=== PATIENT | female | born 1950 | race Caucasian/White ===

== ENCOUNTER 2016-12-01 08:13 | Emergency (ER) | payer OTHER, BC ==
[~2016-12-01] VITALS: Ht 157.5 cm; Wt 86.1 kg
[~2016-12-01 08:13] MED LIST: ABAT1INJ2 SC; ACET300T2 PO; AMIT50TA3 PO; METH2.5T PO
[2016-12-01 08:28] VITALS: TEMP 36.6; Ht 157.5 cm; Wt 86.1 kg
[2016-12-01] MEDS ORDERED: MoRPHine SULFATE 4 MG/ML 1 ML CARP\\VIAL IV STA ×2 (08:30→09:44)
[2016-12-01] MEDS ORDERED: ONDANSETRON INJ 2 MG/ML 2 ML VIAL IV STA (08:30)
--- NOTE | 2016-12-01 08:45 | EMERGENCY ROOM VISIT NOTE ---
History Report prepared by Zina: Myesha Esteban Under the Supervision of: Dr. Mann Doan M.D. First contact with patient: 08:19 Chief Complaint: SHOULDER PAIN Stated Complaint: FELL OUT OF BED,HURT/MADELINE FRIEND History of Present Illness The patient is a 65 year old female who presents to the Emergency Room with complaints of constant right shoulder pain beginning 2 hours ago. The patient states that she fell out of bed this morning when she was trying to go to the bathroom. She reports that she slid out of bed when she fell and had no loss of consciousness. She complains of right sided neck pain, hand pain, and finger pain on the right side. She denies any hip pain, back pain, headache, chest pain , shortness of breath, abdominal pain. The patient states that she is not on blood thinners. She rates her pain as an 8/10 in severity. Source of History: patient, spouse/significant other Onset: 2 hours ago Position: shoulder (right) Symptom Intensity: 8/10 Timing: constant Associated Symptoms: + neck pain, No headache, No chest pain, No SOB, No abdominal pain, No back pain Note: She complains of right sided hand pain, and finger pain on the right side. She denies any hip pain, Review of Systems See HPI for pertinent positives & negatives. A total of 10 systems reviewed and were otherwise negative. Past Medical & Surgical Medical Problems: (1) Constipation (2) RA (rheumatoid arthritis) Surgical Problems: (1) History of back surgery (2) History of colonoscopy Old medical records were reviewed. Nurse's notes were reviewed and I agree with. Family History Colon cancer MOTHER Social History Smoking Status: Never Smoker Marital Status: Occupation Status: retired Current/Historical Medications Scheduled Amitriptyline Hcl (Amitriptyline Hcl), 200 MG PO HS Methotrexate (Methotrexate), 10 MG PO WK Tofacitinib Citrate (Xeljanz), 1 TAB PO DAILY Scheduled PRN Acetaminophen W/ Codeine (Tylenol W/Codeine #3), 1 TAB PO UD PRN for Pain Allergies Coded Allergies: Bacitracin (Verified Allergy, Mild, ., 11/16/13) Neomycin (Verified Allergy, Mild, ., 11/16/13) Polymyxin B (Verified Allergy, Mild, ., 11/16/13) Physical Exam Vital Signs Date Time Temp Pulse Resp B/P (MAP) Pulse Ox O2 Delivery O2 Flow Rate FiO2 12/01/16 16:18 81 16 119/61 99 Room Air 12/01/16 15:04 93 18 112/72 98 Nasal Cannula 2.0 12/01/16 14:07 88 16 140/79 100 Nasal Cannula 2.0 12/01/16 13:05 93 Nasal Cannula 2.0 12/01/16 13:01 89 16 120/74 88 Room Air 12/01/16 11:36 93 16 120/74 97 Room Air 12/01/16 10:42 88 18 139/77 90 12/01/16 09:49 89 16 133/65 91 Room Air 12/01/16 08:28 36.6 79 18 107/61 95 Room Air Physical Exam General: Well developed well nourished, breathing comfortably on room air. Normal speech. Uncomfortable appearing older female in pain. HEENT: Normal cephalic atraumatic. Pupils are equal round and reactive to light. Extraocular movements are intact. Oropharynx is pink with moist mucous membranes. No swelling of the mouth lips or tongue. Neck: Supple with a midline trachea. No meningeal signs or stiffness, no JVD or bruits. No Stridor. She does have some mild right-sided neck tenderness Chest: Clear to auscultation bilaterally. No wheezes or rhonchi. No increased work of breathing. Heart: regular rate and rhythm. Abdomen: Soft nontender, nondistended without rebound guarding or rigidity. Extremities: No cyanosis clubbing or edema. No calf tenderness or assymetry. Multiple scars on right shoulder from previous surgery. Difficult time with movement of the upper extremity diffusely. She is in a lot of pain and has minimal movement of the arm. She is pink and well perfused appearing Spine/Back. Non tender to palpation. No CVA tenderness Skin: Good turgor without rashes. Neurologic exam: Cranial nerves two through 12 are intact. Motor and sensation are intact and symmetrical throughout. Medical Decision & Procedures ER Provider Diagnostic Interpretation: Radiology results as stated below per my review and radiologist interpretation: RIGHT SHOULDER MIN 2 VIEWS ROUTINE DISCUSSION: There is a dislocation which is anterior/inferior. There is a humeral head Hill-Sachs deformity. There is soft tissue anchor within the humeral head. There are right basilar atelectatic changes. IMPRESSION: 1. Anterior/inferior dislocation. 2. Hill-Sachs deformity. Electronically signed by: Antwan Rodriguez M.D. 12/01/2016 9:23 AM Dictated Date/Time: 12/01/2016 9:21 AM RIGHT HUMERUS 3 VIEWS FINDINGS: Anterior inferior right shoulder dislocation with a Hill-Sachs impaction fracture. There is a metallic anchor within the humeral head. The mid to distal humerus is intact. IMPRESSION: Right shoulder anterior/inferior dislocation with a Hill-Sachs impaction fracture. Electronically signed by: George Lindsay M.D. 12/01/2016 9:32 AM Dictated Date/Time: 12/01/2016 9:30 AM RIGHT SHOULDER 2 VIEWS FINDINGS: 2 portable views of the right shoulder are compared to study performed earlier the same day 12/01/2016. The skeletal structures are osteopenic. A Hill-Sachs fracture is again seen in the humeral head. There is persistent anterior shoulder dislocation. Mild productive change is seen at the acromioclavicular joint. Surgical anchors are again noted in the humeral head. Mild overlying soft tissue edema is observed. The heart is enlarged. There is right basilar atelectasis. IMPRESSION: 1. Persistent anterior dislocation of the right shoulder. 2. A Hill-Sachs fracture is again noted. Electronically signed by: Allen Beth M.D. 12/01/2016 11:29 AM Dictated Date/Time: 12/01/2016 11:27 AM RIGHT SHOULDER MIN 2 VIEWS ROUTINE FINDINGS: Interval reduction of the right shoulder dislocation. The alignment is anatomic. Hill-Sachs deformity remains unchanged. No fractures within the distal right clavicle. IMPRESSION: Interval reduction of the right shoulder dislocation. The alignment is anatomic. Electronically signed by: George Lindsay M.D. 12/01/2016 12:46 PM Dictated Date/Time: 12/01/2016 12:[address] HEAD WITHOUT CONTRAST (CT) FINDINGS: No intra or extra-axial mass lesions are visualized. There is no CT evidence of acute cortical infarction. There is no evidence of midline shift. There is no acute hemorrhage. No calvarial fractures are visualized. There are patchy white matter hypodensities likely on a small vessel basis. There are atrophic changes within the cerebellum. There is no evidence of pathologic ventricular dilatation. There is no evidence of acute sinusitis IMPRESSION: No acute intracranial findings Electronically signed by: Antwan Rodriguez M.D. 12/01/2016 1:54 PM Dictated Date/Time: 12/01/2016 1:[address] SCAN OF THE CERVICAL SPINE FINDINGS: Skeletal structures: The skeletal structures are osteopenic. There is no evidence of fracture or subluxation involving the cervical spine. Vertebral body height and alignment are maintained. There is straightening of the cervical lordosis with mild reversal centered at C5-C6. The odontoid process and lateral masses are intact. The atlantoaxial articulation is maintained noting productive degenerative change. The spinous processes appear intact. Mild facet arthropathy is seen in the lower cervical region. Intervertebral discs: Mild degenerative disc space narrowing is seen at C5-C6 and C6-C7. The remaining disc spaces are maintained. Central canal: Posterior disc osteophyte complexes at C4-C5, C5-C6, and C6-C7 likely contribute to mild acquired compromise of the central canal. Soft tissues: The prevertebral and paraspinous soft tissues are within normal limits. A 6 mm low-attenuation nodule is incidentally noted in the right lobe of the thyroid gland. There are calcified tonsilliths. Calvarium: The visualized calvarium at the skull base appears intact. Brain parenchyma: Partially visualized brain parenchyma the skull base is within normal limits. Sinuses and mastoids: The visualized paranasal sinuses are clear. The mastoid air cells are well pneumatized. Lung apices: Clear as visualized. IMPRESSION: 1. There is no evidence of fracture or subluxation involving the cervical spine. 2. Osteopenia and mild spondylotic change as above. Electronically signed by: Allen Beth M.D. 12/01/2016 1:59 PM Dictated Date/Time: 12/01/2016 1:52 PM Laboratory Results 12/01/16 08:55 Red Blood Count 4.06, Mean Corpuscular Volume 89.9, Mean Corpuscular Hemoglobin 31.0, Mean Corpuscular Hemoglobin Concent 34.5, Mean Platelet Volume 9.9, Neutrophils (%) (Auto) 63.3, Lymphocytes (%) (Auto) 23.5, Monocytes (%) (Auto) 10.0, Eosinophils (%) (Auto) 2.5, Basophils (%) (Auto) 0.2, Neutrophils # (Auto ) 4.12, Lymphocytes # (Auto) 1.53, Monocytes # (Auto) 0.65, Eosinophils # (Auto ) 0.16, Basophils # (Auto) 0.01 12/01/16 08:55 Test 12/01/16 08:55 White Blood Count 6.50 K/uL (4.8-10.8) Red Blood Count 4.06 M/uL (4.2-5.4) Hemoglobin 12.6 g/dL (12.0-16.0) Hematocrit 36.5 % (37-47) Mean Corpuscular Volume 89.9 fL (80-100) Mean Corpuscular Hemoglobin 31.0 pg (25-34) Mean Corpuscular Hemoglobin Concent 34.5 g/dl (32-36) Platelet Count 253 K/uL (130-400) Mean Platelet Volume 9.9 fL (7.4-10.4) Neutrophils (%) (Auto) 63.3 % Lymphocytes (%) (Auto) 23.5 % Monocytes (%) (Auto) 10.0 % Eosinophils (%) (Auto) 2.5 % Basophils (%) (Auto) 0.2 % Neutrophils # (Auto) 4.12 K/uL (1.4-6.5) Lymphocytes # (Auto) 1.53 K/uL (1.2-3.4) Monocytes # (Auto) 0.65 K/uL (0.11-0.59) Eosinophils # (Auto) 0.16 K/uL (0-0.5) Basophils # (Auto) 0.01 K/uL (0-0.2) RDW Standard Deviation 48.0 fL (36.4-46.3) RDW Coefficient of Variation 14.6 % (11.5-14.5) Immature Granulocyte % (Auto) 0.5 % Immature Granulocyte # (Auto) 0.03 K/uL (0.00-0.02) Anion Gap 10.0 mmol/L (3-11) Est Creatinine Clear Calc Drug Dose 61.6 ml/min Estimated GFR () 74.3 Estimated GFR (Non- 64.1 BUN/Creatinine Ratio 12.6 (10-20) Calcium Level 8.6 mg/dl (8.5-10.1) Total Bilirubin 0.2 mg/dl (0.2-1) Direct Bilirubin < 0.1 mg/dl (0-0.2) Aspartate Amino Transf (AST/SGOT) 23 U/L (15-37) Alanine Aminotransferase (ALT/SGPT) 48 U/L (12-78) Alkaline Phosphatase 65 U/L (45-117) Total Protein 6.8 gm/dl (6.4-8.2) Albumin 3.5 gm/dl (3.4-5.0) Lipase 106 U/L (73-393) Thyroid Stimulating Hormone (TSH) 1.470 uIu/ml (0.300-4.500) Laboratory studies as stated above per my review. Medications Administered Medications (Trade) Dose Ordered Sig/Yue Route Start Time Stop Time Status Last Admin Dose Admin Morphine Sulfate (MoRPHine SULFATE INJ) 4 mg NOW STAT IV 12/01/16 08:30 12/01/16 08:33 DC 12/01/16 08:53 4 MG Ondansetron HCl (Zofran Inj) 4 mg NOW STAT IV 12/01/16 08:30 12/01/16 08:33 DC 12/01/16 08:54 4 MG Morphine Sulfate (MoRPHine SULFATE INJ) 4 mg NOW STAT IV 12/01/16 09:44 12/01/16 09:45 DC 12/01/16 09:48 4 MG Ketorolac Tromethamine (Toradol Inj) 30 mg NOW STAT IV 12/01/16 10:45 12/01/16 10:47 DC 12/01/16 10:56 30 MG Morphine Sulfate (MoRPHine SULFATE INJ) 2 mg NOW STAT IV 12/01/16 11:29 12/01/16 11:31 DC 12/01/16 11:35 2 MG Aspirin (Aspirin Chew) 324 mg NOW STAT PO 12/01/16 15:54 12/01/16 15:55 DC 12/01/16 16:02 324 MG Procedure Anterior shoulder reduction: The patient was given IV pain medication and was relaxed. She was placed in the prone position and my licensed loan officer assistant applied scapular manipulation and I applied gentle traction. A pop was not felt however the patient felt better. We sat her up and when she moved it a clunk was felt and the shoulder apparently fell back out. A follow-up film shows that it was out again. We then gave her some more pain medication and gently rotated her arm and it easily popped rate in. The patient felt better. She was placed in a sling. My concern was however after the reduction it that continued to have weakness in her hand and wrist diffusely. ECG Indication: other (shoulder pain) Rate (beats per minute): 88 Rhythm: normal sinus Findings: no acute ischemic change, no ectopy Comparison ECG Date: no prior available ED Course 0819: Past medical records reviewed. The patient was evaluated in room A3, and a complete history and physical examination were performed. 0830: Zofran Inj 4mg IV, Morphine Sulfate 4mg IV. 0944: Morphine Sulfate 4mg IV. 1005: I attempted a shoulder relocation. 1045: Toradol Inj 30mg IV. 1101: I relocated the patients shoulder. 1121: I reevaluated the patient. She has weakness in the wrist and hand. 1129: Morphine Sulfate 2mg IV. 1229: I spoke to Dr. Sánchez. He will come in to see the patient. 1332: I reevaluated the patient. Dr. Sánchez evaluated the patient. He doesn't feel like it is a peripheral nerve problem. 1428: I spoke to Marcelina Salazar PA-C of [facility]. She will evaluate the patient for further management. 1436: Upon reevaluation, the patient is doing well. I discussed the results and treatment plan with the patient. She verbalized agreement of the treatment plan. The patient will be evaluated for further management. Medical Decision Differential diagnosis includes fracture, dislocation, contusion, orthopedic injury, syncope. Blood pressure Screening: Patient was found to have normal blood pressure on screening and does not require follow-up. Medication Reconciliation: I attest that I have personally reviewed the patient' s current medication list. This patient comes in as described above she has anterior shoulder dislocation she's had several shoulder surgeries on that side as well as a brachial plexus surgery. She is also had TIAs. She has no other numbness or weakness. We did reduce the shoulder as outlined above atraumatically. The patient tolerated this well but again there was concern that she had continued weakness in the hand and wrist afterwards. I consulted orthopedics to see her they do not feel is any evidence of any nerve damage or entrapment however there is concern that there could be a brachial plexus injury from the fall or possibly exacerbated by the manipulation. They recommended a sling and a splint. These were placed. I did a CAT scan of her head and neck there is no evidence to suggest acute stroke or spinal process. Blood work was obtained. I did consult medicine to rule out stroke or higher up process. This point most likely it's brachial plexus could also be something potentially in the neck causing her symptoms. I did consult the hospitalist and they are have ordered MRIs and feel that she can go home if these are normal. These are pending and the hospitalist will follow-up on these. If these are negative she will be discharged home and follow-up with orthopedist. She will use a sling and a wrist lacer. Consults Time Called: 1329 Consulting Physician: Dr. Sánchez Returned Call: 1332 I reevaluated the patient. Dr. Sánchez evaluated the patient. He doesn't feel like it is a peripheral nerve problem. Additional Consults: Time Called: 1426 Consulted Physician: Marcelina Madden Returned Call: 1430 Additional Comments: I spoke to Marcelina Salazar PA-C of [facility]. She will evaluate the patient for further management. Impression Primary Impression: Dislocation of right shoulder joint Additional Impressions: Right hand weakness Brachial plexus injury Scribe Attestation The scribe's documentation has been prepared under my direction and personally reviewed by me in its entirety. I confirm that the note above accurately reflects all work, treatment, procedures, and medical decision making performed by me. Departure Information Dispostion Being Evaluated By Hospitalist Referrals Sandeep Rachel M.D. (PCP) Patient Instructions My [facility] Problem Qualifiers
--- NOTE | 2016-12-01 09:25 | DIAGNOSTIC IMAGING REPORT ---
RIGHT SHOULDER MIN 2 VIEWS ROUTINE CLINICAL HISTORY: Right shoulder pain status post trauma COMPARISON: None. DISCUSSION: There is a dislocation which is anterior/inferior. There is a humeral head Hill-Sachs deformity. There is soft tissue anchor within the humeral head. There are right basilar atelectatic changes. IMPRESSION: 1. Anterior/inferior dislocation. 2. Hill-Sachs deformity. Electronically signed by: Antwan Rodriguez M.D. 12/01/2016 9:23 AM Dictated Date/Time: 12/01/2016 9:21 AM
--- NOTE | 2016-12-01 09:34 | DIAGNOSTIC IMAGING REPORT ---
RIGHT HUMERUS 3 VIEWS HISTORY: Right arm pain. eval for trauma Right COMPARISON: Right shoulder 12/01/2016. FINDINGS: Anterior inferior right shoulder dislocation with a Hill-Sachs impaction fracture. There is a metallic anchor within the humeral head. The mid to distal humerus is intact. IMPRESSION: Right shoulder anterior/inferior dislocation with a Hill-Sachs impaction fracture. Electronically signed by: George Lindsay M.D. 12/01/2016 9:32 AM Dictated Date/Time: 12/01/2016 9:30 AM
[2016-12-01] MEDS ORDERED: KETOROLAC TROMETHAMINE 30 MG/ML VIAL IV STA (10:45)
[2016-12-01] MEDS ORDERED: TOFA1TAB PO (10:50)
[2016-12-01] MEDS ORDERED: MoRPHine SULFATE 2 MG/ML CARP IV STA (11:29)
--- NOTE | 2016-12-01 11:30 | DIAGNOSTIC IMAGING REPORT ---
RIGHT SHOULDER 2 VIEWS CLINICAL HISTORY: Right shoulder dislocation status post reduction. FINDINGS: 2 portable views of the right shoulder are compared to study performed earlier the same day 12/01/2016. The skeletal structures are osteopenic. A Hill-Sachs fracture is again seen in the humeral head. There is persistent anterior shoulder dislocation. Mild productive change is seen at the acromioclavicular joint. Surgical anchors are again noted in the humeral head. Mild overlying soft tissue edema is observed. The heart is enlarged. There is right basilar atelectasis. IMPRESSION: 1. Persistent anterior dislocation of the right shoulder. 2. A Hill-Sachs fracture is again noted. Electronically signed by: Allen Beth M.D. 12/01/2016 11:29 AM Dictated Date/Time: 12/01/2016 11:27 AM
--- NOTE | 2016-12-01 12:47 | DIAGNOSTIC IMAGING REPORT ---
RIGHT SHOULDER MIN 2 VIEWS ROUTINE CLINICAL HISTORY: post reduction Right COMPARISON STUDY: Right shoulder 12/01/2016. FINDINGS: Interval reduction of the right shoulder dislocation. The alignment is anatomic. Hill-Sachs deformity remains unchanged. No fractures within the distal right clavicle. IMPRESSION: Interval reduction of the right shoulder dislocation. The alignment is anatomic. Electronically signed by: George Lindsay M.D. 12/01/2016 12:46 PM Dictated Date/Time: 12/01/2016 12:38 PM
[2016-12-01 12:57] LABS: BASO % 0.2 %; BASO ABS # 0.01 K/uL (0-0.2); COMPLETE YES; EOS % 2.5 %; HEMATOCRIT 36.5 % (37-47); IG% 0.5 %; LYMPH % 23.5 %; LYMPH ABS # 1.53 K/uL (1.2-3.4); MEAN CELL VOLUME 89.9 fL (80-100); MEAN CORPUSCULAR HGB CONC 34.5 g/dl (32-36); MEAN PLATELET VOLUME 9.9 fL (7.4-10.4); NEUT % 63.3 %; PLATELET COUNT 253 K/uL (130-400); RED BLOOD COUNT 4.06 M/uL (4.2-5.4)
[2016-12-01 13:00] LABS: BLOOD UREA NITROGEN 12 mg/dl (7-18); BUN/CREATININE RATIO 12.6 (10-20); CALCIUM 8.6 mg/dl (8.5-10.1); CARBON DIOXIDE 25 mmol/L (21-32); CHLORIDE 108 mmol/L (98-107); CREATININE 0.94 mg/dl (0.60-1.20); GLUCOSE 114 mg/dl (70-99); POTASSIUM 3.7 mmol/L (3.5-5.1); SODIUM 143 mmol/L (136-145)
[2016-12-01 13:05] VITALS: O2SAT 93
[2016-12-01 13:11] LABS: ALKALINE PHOSPHATASE 65 U/L (45-117); ALT/SGPT 48 U/L (12-78); AST/SGOT 23 U/L (15-37)
--- NOTE | 2016-12-01 13:55 | DIAGNOSTIC IMAGING REPORT ---
CT HEAD WITHOUT CONTRAST (CT) CLINICAL HISTORY: Head pain status post trauma. Patient fell out of bed. COMPARISON STUDY: No previous studies for comparison. TECHNIQUE: Axial CT of the brain is performed from the vertex to the skull base. IV contrast was not administered for this examination. CT DOSE: FINDINGS: No intra or extra-axial mass lesions are visualized. There is no CT evidence of acute cortical infarction. There is no evidence of midline shift. There is no acute hemorrhage. No calvarial fractures are visualized. There are patchy white matter hypodensities likely on a small vessel basis. There are atrophic changes within the cerebellum. There is no evidence of pathologic ventricular dilatation. There is no evidence of acute sinusitis IMPRESSION: No acute intracranial findings Electronically signed by: Antwan Rodriguez M.D. 12/01/2016 1:54 PM Dictated Date/Time: 12/01/2016 1:52 PM
--- NOTE | 2016-12-01 14:00 | DIAGNOSTIC IMAGING REPORT ---
CT SCAN OF THE CERVICAL SPINE CLINICAL HISTORY: Fall. COMPARISON STUDY: No priors. TECHNIQUE: CT scan of the cervical spine is performed from the skull base to the upper thoracic spine. Images are reviewed in the axial, sagittal, and coronal planes. IV contrast was not administered for this examination. CT DOSE: 942.83 mGy.cm FINDINGS: Skeletal structures: The skeletal structures are osteopenic. There is no evidence of fracture or subluxation involving the cervical spine. Vertebral body height and alignment are maintained. There is straightening of the cervical lordosis with mild reversal centered at C5-C6. The odontoid process and lateral masses are intact. The atlantoaxial articulation is maintained noting productive degenerative change. The spinous processes appear intact. Mild facet arthropathy is seen in the lower cervical region. Intervertebral discs: Mild degenerative disc space narrowing is seen at C5-C6 and C6-C7. The remaining disc spaces are maintained. Central canal: Posterior disc osteophyte complexes at C4-C5, C5-C6, and C6-C7 likely contribute to mild acquired compromise of the central canal. Soft tissues: The prevertebral and paraspinous soft tissues are within normal limits. A 6 mm low-attenuation nodule is incidentally noted in the right lobe of the thyroid gland. There are calcified tonsilliths. Calvarium: The visualized calvarium at the skull base appears intact. Brain parenchyma: Partially visualized brain parenchyma the skull base is within normal limits. Sinuses and mastoids: The visualized paranasal sinuses are clear. The mastoid air cells are well pneumatized. Lung apices: Clear as visualized. IMPRESSION: 1. There is no evidence of fracture or subluxation involving the cervical spine. 2. Osteopenia and mild spondylotic change as above. Electronically signed by: Allen Beth M.D. 12/01/2016 1:59 PM Dictated Date/Time: 12/01/2016 1:52 PM
[2016-12-01] MEDS ORDERED: ASPIRIN 81 MG CHEW PO STA (15:54)
--- NOTE | 2016-12-01 18:07 | DIAGNOSTIC IMAGING REPORT ---
Brain MRI WITHOUT CONTRAST HISTORY: Mental status change rule out CVA TECHNIQUE: Multiplanar multisequence MRI of the brain was performed without the use of contrast. COMPARISON STUDY: None. FINDINGS: There are no areas of restricted diffusion to suggest acute infarction. The midline structures are intact. The paranasal sinuses are clear. The mastoid air cells are clear. The ventricles and sulci are within normal limits for age. There is no mass, hematoma, midline shift. The major vascular flow-voids at the skull base are well maintained. Moderate cerebellar and to lesser extent cerebral atrophy. Mild chronic small vessel change. IMPRESSION: No acute intracranial abnormality. No evidence for an acute ischemic insult. Age-related change. Electronically signed by: Clifton Browning M.D. 12/01/2016 6:06 PM Dictated Date/Time: 12/01/2016 6:05 PM
--- NOTE | 2016-12-01 18:08 | DIAGNOSTIC IMAGING REPORT ---
Brain MRA HISTORY: Mental status change rule out CVA TECHNIQUE: 3-D [id number] MRA of the brain was performed without contrast. COMPARISON STUDY: None. FINDINGS: Visualized intracranial internal carotid arteries, distal vertebral arteries, and basilar artery are widely patent. There is no significant stenosis, occlusion, or aneurysm seen within the bilateral ACAs, MCAs, or wood repatcher. IMPRESSION: No significant stenosis, occlusion, or aneurysm within the [place] of [place]. Electronically signed by: Clifton Browning M.D. 12/01/2016 6:07 PM Dictated Date/Time: 12/01/2016 6:06 PM
--- NOTE | 2016-12-01 18:09 | DIAGNOSTIC IMAGING REPORT ---
NECK MRA HISTORY: Mental status change rule out CVA TECHNIQUE: [id number] and gadolinium-enhanced MRA of the neck was performed both before and after the intravenous administration of contrast. All measurements were calculated based on NASCET criteria. COMPARISON STUDY: None. FINDINGS: The aortic arch and proximal great vessels are widely patent. There is no significant stenosis, occlusion, or dissection identified within the bilateral common carotid, internal carotid, or vertebral arteries. IMPRESSION: No significant stenosis, occlusion, or dissection identified within the carotid or vertebral arteries. Mild scattered atherosclerotic change Electronically signed by: Clifton Browning M.D. 12/01/2016 6:08 PM Dictated Date/Time: 12/01/2016 6:07 PM
[2016-12-01] MEDS ORDERED: GADAVIST IV PRN (18:15)
[2016-12-01] MEDS ORDERED: OXYC-57 PO (18:37)
[2016-12-01 18:40] VITALS: BP 114/73; PULSE 85; O2SAT 93
[2016-12-01] MEDS ORDERED: PERCOCET HOME PACK PO ONE (18:45)
[2016-12-01] MEDS ORDERED: FLV1 (19:02)
[2016-12-01] MEDS ORDERED: ESCI1TAB6 PO (19:02)
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
--- NOTE | 2016-12-01 20:04 | CONSULTATION REPORT ---
DATE OF CONSULTATION: 12/01/2016 CHIEF COMPLAINT: Right shoulder injury. HISTORY OF PRESENT ILLNESS: Karen is a 65-year-old female patient who is new to [facility] and currently resides in [place] and she has a "summer home" in [place]. She fell out of bed injuring her right upper extremity. She admits to pain, stiffness and deformity. The patient does have a past history of right shoulder pathology requiring a rotator cuff repair by her orthopedic surgeon in [place], [place]. A reduction was performed successfully in the Emergency Department and post-reduction x-rays were obtained. Dr. Norton and [facility] were consulted to evaluate Karen regarding her right shoulder and what is now being described as a possible nerve injury in the right hand. Karen denies any prior issues with her right upper extremity, specifically her hand. She states that she has good sensation in her right hand and reports a loss of motor function. She denies any other weakness or loss of feeling in the upper or lower extremities. She denies headache, chest pain, shortness of breath, fevers, chills, night sweats, dizziness or loss of consciousness. PAST MEDICAL HISTORY: 1. Constipation. 2. Rheumatoid arthritis. PAST SURGICAL HISTORY: 1. Back surgery. 2. Colonoscopy. 3. Right shoulder surgery, rotator cuff repair. 4. Surgery for left brachial plexus injury. FAMILY HISTORY: Mother had colon cancer. SOCIAL HISTORY: The patient is retired. She is . She is a nonsmoker. MEDICATIONS: 1. Amitriptyline 200 mg p.o. at bedtime. 2. Methotrexate 10 mg p.o. weekly. 3. Tofacitinib citrate also known as Xeljanz 1 tab daily. ALLERGIES: 1. BACITRACIN. 2. NEOMYCIN. 3. POLYMYXIN B. REVIEW OF SYSTEMS: Again, the patient denies any headache, chest pain, shortness of breath, fevers, chills, night sweats, dizziness, weakness or loss of consciousness. PHYSICAL EXAMINATION: VITAL SIGNS: Currently reveal a pulse of 88, respiratory rate of 16, blood pressure 140/79, and pulse ox is 100% on 2 liters nasal cannula. GENERAL: The patient is alert and oriented x3 female. She is in no acute distress. She is pleasant, appears her currently stated age. She does appear to be slightly euphoric possibly from the pain medication provided intravenously. Otherwise, a very accurate with descriptions and historic recall. The patient's is with her as well in the ER and both are very pleasant to speak with. SKIN: Exam of the patient's right upper extremity, the patient has a small has small scars around the right shoulder due to her prior rotator cuff repair. There was no significant swelling, erythema, notable effusion. There are no other obvious lesions or abrasions or ecchymotic changes or erythema noted throughout the fingers, hand, wrist, forearm, arm or shoulder. NEUROVASCULAR: Exam of the right upper extremity, the patient has good sensation over the deltoid regarding axillary nerve. Distal pulses are +2. Capillary refill is under 2 seconds. The patient has good sensation throughout the right upper entire extremity, again beginning at the fingers and ending proximal to the shoulder. No discrepancies bilaterally. Motor function does appear to be diminished in the patient's right hand. The patient is unable to provide any type of active motion in the right hand. Unable to test supervisor furnace room strengths, flexion or extension of the fingers or thumb and again, unable to flex or extend at the wrist. Median, ulnar, and radial nerve were assessed and again motor function appears to be diminished at this time. Motor function and strength were tested at the elbow and has +5 strength with flexion and extension of the right elbow. Regarding the right shoulder, flexion and extension, AB and adduction revealed against resistance. During today's conversation generalized inspection, the patient did not have any facial drooping. She was not slurring her words. All of her vocabulary and senses were well thought and organized and accurate. MUSCULOSKELETAL: Exam on the right upper extremity, regarding the right shoulder, she has some generalized tenderness about the right shoulder secondary to her dislocation and ultimate reduction. The AC joint is nontender and remaining clavicle is nontender, nontender SC joint. The elbow was palpated and has a full range of motion and is nontender on palpating the olecranon process, medial and lateral epicondyles. Bones of the entire ulnar and radius were palpated from elbow and wrist. She is nontender on palpating the carpal bones, metacarpals, and thumb and phalanges of the right hand. I am able to passively range her wrist and fingers and there is no discomfort at end points. With the elbow flexed at 90 degrees at her side, she is able to actively and able to passively internally and externally rotate the right upper extremity which I would not be able to do if she was currently dislocated and/or would be well tolerated. LABORATORY DATA: Current lab values reveal white blood cell count of 6.5, hemoglobin of 12.6, hematocrit 36.5, and platelet count of 253. Chemistry reveals sodium of 143, potassium 3.7, chloride of 108, carbon dioxide of 25, BUN of 12, creatinine of 0.94, and random glucose is 114. IMAGING DATA: Plain film radiographs upon admission to the Emergency Department revealed an inferior with slight anterior dislocation of the right glenohumeral joint. There is not obvious Hill-Sachs lesion. Postsurgical changes were appreciated with metallic anchors secondary to her prior rotator cuff repair. There are also some degenerative changes noted throughout the right shoulder and AC joint. There is a possibility of the greater tuberosity injury in the form of a nondisplaced fracture but is not limited and at this point, I feel is too early to determine and certainly is not an emergent or urgent issue at this time. Post-reduction films were obtained and revealed that the humeral head is located within the glenoid fossa and AP and a scapular Y were reviewed and significant improvement reported with no evidence of further injury radiographically after the reduction. Other imaging obtained is a head CT scan with no acute intracranial findings along with a cervical spine CAT scan, with no evidence of fracture or subluxation involving the cervical spine. There is some osteopenia, mild spondylotic change. There is mild degenerative disc space narrowing seen at C5-6 and C6-7. Posterior disc osteophyte complexes noted at C4-5, C5-6 and C6-7, likely to contribute mild acquired compromise of the central canal. A 6 mm low attenuation nodule incidentally found in the right lobe of thyroid gland. There are calcified tonsillith. IMPRESSION: 1. Right shoulder dislocation successful reduction. 2. Right hand weakness status post reduction. PLAN: Today's findings were discussed further with the patient and her . After further discussion with Dr. Norton, concerns the patient does not have any type of emergent or urgent findings today. I do not feel that there could be a type of neurologic injury sustained during her fall or her reduction proximally to the location of the brachial plexus. Again, this is not urgent at this time and can be evaluated as an outpatient either locally or when the patient returns to [place] if that is in a timely manner. I have ordered a cock-up wrist brace in the patient's right upper extremity be associated not in constant flexion causing injury to the median nerve. I do feel that a sling should be utilized as well until she has further improvements with so as her pain permits and improves, which will most likely be on a daily basis. She will need further evaluation by medical staff in the ER and imaging again does not appear that the patient will require further stay orthopedically. The patient was pleased with our care. If the patient is a local over the next 1-2 weeks then she can be evaluated at [facility] by calling [phone]. Otherwise, no other questions or concerns and is satisfied with this care and explanations. Thank you for this consultation. I, Dr. Norton, saw and examined the patient and discussed the management with my PA. I reviewed my PAs note and agree with the documented findings and the plan of care I developed. ALBERTO
== END 2016-12-01 18:40 | disposition home or self-care (01) ==
LOC: C.EDB 08:15 → C.EDA 18:40
DX: S43.011A Anterior subluxation of right humerus, initial encounter (principal); S14.3XXA Injury of brachial plexus, initial encounter; W06.XXXA Fall from bed, initial encounter; F01.50 Vascular dementia, unspecified severity, without behavioral disturbance, psychotic disturbance, mood disturbance, and anxiety; Y92.009 Unspecified place in unspecified non-institutional (private) residence as the place of occurrence of the external cause; M06.9 Rheumatoid arthritis, unspecified; Z80.0 Family history of malignant neoplasm of digestive organs; Z79.899 Other long term (current) drug therapy